=== PATIENT | female | born 1950 | race Caucasian/White ===

== ENCOUNTER 2017-04-27 08:54 | Emergency (ER) | payer MEDICARE ==
[~2017-04-27] VITALS: Ht 167.6 cm; Wt 72.5 kg
[2017-04-27 08:58] VITALS: BP 167/75; PULSE 81; RESP 14; TEMP 98.7; O2SAT 99
[2017-04-27 09:42] LABS: BILIRUBIN, URINE NEG (NEG); BLOOD, URINE NEG (NEG); GLUCOSE,URINE NEG (NEG); KETONE, URINE NEG (NEG); NITRITE,URINE NEG (NEG); PH, URINE 6.5 (5.0-8.5); SQUAMOUS EPITHELIAL CELL URINE 1 /hpf (0-5); URINE LEUKOCYTE ESTERASE NEG (NEG)
[2017-04-27 09:43] LABS: URINE COLOR STRAW (YELLW/STRAW)
--- NOTE | 2017-04-27 09:52 | PD ---
HPI Chief Complaint: Flank/Kidney Pain Time Seen by Provider: 09:32 Travel History International Travel<30 days: No Contact w/Intl Traveler<30days: No Traveled to known affect area: No History of Present Illness HPI Patient is a 66-year-old female presents emergency department for evaluation of left flank pain for the past day and a half. Patient states that she has a history of kidney infections and thinks that she is having one again. Denies any fevers nausea vomiting diarrhea constipation blood in the stool. States she is just having pain in her left flank. Denies any dysuria. States she has never had any kidney stones. She states the pain is moderate to severe, gradually worsening, context and associated signs and symptoms as above PFSH Past Medical History Medical History: Denies Significant Hx Hx Anticoagulant Therapy: No Cardiovascular Problems: No Chemotherapy: No Cerebrovascular Accident: No Diabetes: No Respiratory: No ?: Unknown Past Surgical History Appendectomy: Yes Section: Yes Hysterectomy: No Social History Alcohol Use: Yes (couple times a week ) Tobacco Use: Yes (2 1/2 packs a day ) Substance Use: No Allergies-Medications (Allergen,Severity, Reaction): Coded Allergies: codeine (Verified Allergy, Intermediate, Nausea/Vomiting, 04/27/17) Reported Meds & Prescriptions Reported Meds & Active Scripts Active No Active Prescriptions or Reported Medications Review of Systems Except as stated in HPI: all other systems reviewed are Neg Physical Exam Narrative GENERAL: Well-developed well-nourished, quite pleasant in no obvious distress peer SKIN: Focused skin assessment warm/dry. HEAD: Atraumatic. Normocephalic. EYES: Pupils equal and round. No scleral icterus. No injection or drainage. ENT: No nasal bleeding or discharge. Mucous membranes pink and moist. NECK: Trachea midline. No JVD. CARDIOVASCULAR: Regular rate and rhythm. No murmur appreciated. RESPIRATORY: No accessory muscle use. Clear to auscultation. Breath sounds equal bilaterally. GASTROINTESTINAL: Abdomen soft, non-tender, nondistended. Hepatic and splenic margins not palpable. No CVA tenderness, no rebound no percussive tenderness, Irene sign negative MUSCULOSKELETAL: No obvious deformities. No clubbing. No cyanosis. No edema. NEUROLOGICAL: Awake and alert. No obvious cranial nerve deficits. Motor grossly within normal limits. Normal speech. PSYCHIATRIC: Appropriate mood and affect; insight and judgment normal. Data Data Last Documented VS Vital Signs Date Time Temp Pulse Resp B/P (MAP) Pulse Ox O2 Delivery O2 Flow Rate FiO2 04/27/17 13:05 04/27/17 09:26 80 16 04/27/17 08:58 98.7 99 Room Air Orders Orders Urinalysis - C+S If Indicated (04/27/17 09:18) Complete Blood Count With Diff (04/27/17 09:51) Comprehensive Metabolic Panel (04/27/17 09:51) Lipase (04/27/17 09:51) Prothrombin Time / Inr (Pt) (04/27/17 09:51) Act Partial Throm Time (Ptt) (04/27/17 09:51) Iv Access Insert/Monitor (04/27/17 09:51) Ecg Monitoring (04/27/17 09:51) Oximetry (04/27/17 09:51) Sodium Chloride 0.9% Flush (Ns Flush) (04/27/17 10:00) Electrocardiogram (04/27/17 09:51) Ibuprofen (Motrin) (04/27/17 10:00) Ct Abd/Pel W Iv Contrast(Rout) (04/27/17 ) Iohexol 350 Inj (Omnipaque 350 Inj) (04/27/17 11:57) Ed Discharge Order (04/27/17 12:34) Labs Laboratory Tests Test 04/27/17 09:25 04/27/17 10:00 Urine Color STRAW Urine Turbidity CLEAR Urine pH 6.5 Urine Specific [place] 1.002 Urine Protein NEG mg/dL Urine Glucose (UA) NEG mg/dL Urine Ketones NEG mg/dL Urine Occult Blood NEG Urine Nitrite NEG Urine Bilirubin NEG Urine Urobilinogen LESS THAN 2.0 MG/DL Urine Leukocyte Esterase NEG Urine RBC LESS THAN 1 /hpf Urine WBC LESS THAN 1 /hpf Urine Squamous Epithelial Cells 1 /hpf Microscopic Urinalysis Comment CULT NOT INDICATED White Blood Count 6.8 TH/MM3 Red Blood Count 4.46 MIL/MM3 Hemoglobin 14.6 GM/DL Hematocrit 41.4 % Mean Corpuscular Volume 92.9 FL Mean Corpuscular Hemoglobin 32.8 PG Mean Corpuscular Hemoglobin Concent 35.3 % Red Cell Distribution Width 13.9 % Platelet Count 198 TH/MM3 Mean Platelet Volume 8.5 FL Neutrophils (%) (Auto) 57.5 % Lymphocytes (%) (Auto) 32.0 % Monocytes (%) (Auto) 8.5 % Eosinophils (%) (Auto) 1.4 % Basophils (%) (Auto) 0.6 % Neutrophils # (Auto) 3.9 TH/MM3 Lymphocytes # (Auto) 2.2 TH/MM3 Monocytes # (Auto) 0.6 TH/MM3 Eosinophils # (Auto) 0.1 TH/MM3 Basophils # (Auto) 0.0 TH/MM3 CBC Comment DIFF FINAL Differential Comment Prothrombin Time 10.0 SEC Prothromb Time International Ratio 1.0 RATIO Activated Partial Thromboplast Time 27.6 SEC Blood Urea Nitrogen 12 MG/DL Creatinine 0.58 MG/DL Random Glucose 86 MG/DL Total Protein 6.9 GM/DL Albumin 3.9 GM/DL Calcium Level 8.9 MG/DL Alkaline Phosphatase 70 U/L Aspartate Amino Transf (AST/SGOT) 14 U/L Alanine Aminotransferase (ALT/SGPT) 16 U/L Total Bilirubin 0.3 MG/DL Sodium Level 142 MEQ/L Potassium Level 3.8 MEQ/L Chloride Level 109 MEQ/L Carbon Dioxide Level 28.1 MEQ/L Anion Gap 5 MEQ/L Estimat Glomerular Filtration Rate 104 ML/MIN Lipase 131 U/L MDM Medical Decision Making Medical Screen Exam Complete: Yes Emergency Medical Condition: Yes Differential Diagnosis Kidney stone, UTI, pelvic pain, appendicitis unlikely, acute kidney disease Narrative Course Patient room to the emergency department, she does not want anything stronger for pain medicine and ibuprofen, she appears well in obvious distress. Labs are reassuring, UA negative. CAT scan of her abdomen ordered given her age: Last 24 hours Impressions Abdomen/Pelvis CT 04/27/17 0000 Signed Impressions: Service Date/Time: Thursday, April 27, 2017 11:43 - CONCLUSION: 1. Scattered diverticulosis of the descending and sigmoid colon without inflammatory changes. 2. Bulky enlarged fibroid uterus. On a nonemergent outpatient basis, recommend a dedicated pelvic and transvaginal ultrasound. 3. Pelvic congestion syndrome. 4. 9 mm benign appearing left hepatic cyst. Rosas Miguel MD Discussed results with the patient and recommended outpatient follow-up as above. Discussed return to ED criteria. Her pain is relatively well controlled. She is stable for discharge Diagnosis Primary Impression: Abdominal pain Qualified Codes: R10.84 - Generalized abdominal pain Scripts No Active Prescriptions or Reported Meds Disposition: DISCHARGE HOME Condition: Stable Caleb Paez MD Apr 27, 2017 09:52
[2017-04-27] MEDS ORDERED: IBUPROFEN 600 MG TAB PO ONE (10:00)
[2017-04-27] MEDS ORDERED: SODIUM CHLORIDE 0.9% FLUSH 10 ML FLUSH IV FLUSH PRN (10:00)
[2017-04-27 10:58] LABS: AUTOMATED NEUTROPHIL # 3.9 TH/MM3 (1.8-7.7); BASOPHIL % 0.6 % (0.0-2.0); EOSINOPHIL # 0.1 TH/MM3 (0-0.4); EOSINOPHIL % 1.4 % (0.0-4.0); HEMATOCRIT 41.4 % (35.0-46.0); HEMOGLOBIN 14.6 GM/DL (11.6-15.3); LYMPHOCYTE # 2.2 TH/MM3 (1.0-4.8); MEAN CELL VOLUME 92.9 FL (80.0-100.0); MEAN CORPUSCULAR HEMOGLOBIN 32.8 PG (27.0-34.0); MEAN CORPUSCULAR HGB CONC 35.3 % (32.0-36.0); MEAN PLATELET VOLUME 8.5 FL (7.0-11.0); MONO % 8.5 % (0.0-8.0); MONOCYTE # 0.6 TH/MM3 (0-0.9); NEUT % 57.5 % (16.0-70.0); PLATELET COUNT 198 TH/MM3 (150-450); RED BLOOD COUNT 4.46 MIL/MM3 (4.00-5.30); RED CELL DISTRIBUTION WIDTH 13.9 % (11.6-17.2); WHITE BLOOD COUNT 6.8 TH/MM3 (4.0-11.0)
[2017-04-27 11:13] LABS: ALBUMIN 3.9 GM/DL (3.4-5.0); ALT (GPT) 16 U/L (10-53); AST (GOT) 14 U/L (15-37); BICARBONATE 28.1 MEQ/L (21.0-32.0); BLOOD UREA NITROGEN 12 MG/DL (7-18); CALCIUM 8.9 MG/DL (8.5-10.1); CHLORIDE 109 MEQ/L (98-107); CREATININE 0.58 MG/DL (0.50-1.00); GLOMERULAR FILTRATION RATE 104 ML/MIN (>89); GLUCOSE,RANDOM 86 MG/DL (74-106); SODIUM (NA) 142 MEQ/L (136-145)
[2017-04-27 11:16] LABS: ALKALINE PHOSPHATASE 70 U/L (45-117); TOTAL BILIRUBIN ADULT 0.3 MG/DL (0.2-1.0); TOTAL PROTEIN 6.9 GM/DL (6.4-8.2)
[2017-04-27] MEDS ORDERED: IOHEXOL 350 MG/ML 10 ML VIAL (for RAD DIAG) IVCONTRAST ONE (11:57)
--- NOTE | 2017-04-27 12:07 | RADRPT ---
EXAM DATE/TIME: 04/27/2017 11:43 [facility] COMPARISON: No previous studies available for comparison. INDICATIONS : Left flank pain. IV CONTRAST: 82 cc Omnipaque 350 (iohexol) IV ORAL CONTRAST: No oral contrast ingested. RADIATION DOSE: 10.80 CTDIvol (mGy) MEDICAL HISTORY : None SURGICAL HISTORY : Appendectomy. ENCOUNTER: Initial ACUITY: 1 day PAIN SCALE: 4/10 LOCATION: Left flank TECHNIQUE: Volumetric scanning of the abdomen and pelvis was performed. Using automated exposure control and ad justment of the mA and/or kV according to patient size, radiation dose was kept as low as reasonably achievable to obtain optimal diagnostic quality images. DICOM format image data is available electro nically for review and comparison. FINDINGS: LOWER LUNGS: The visualized lower lungs are clear. LIVER: Homogeneous density without lesion. There is a 9 mm hepatic cyst in the left lobe liver. There is no dilation of the biliary tree. No calcified gallstones. SPLEEN: Normal size without lesion. PANCREAS: Within normal limits. KIDNEYS: Normal in size and shape. There is no mass, stone or hydronephrosis. ADRENAL GLANDS: Within normal limits. VASCULAR: There is no aortic aneurysm. BOWEL/MESENTERY: The stomach, small bowel, and colon demonstrate no acute abnormality. There is no free intraperitone al air or fluid. Scattered diverticulosis of the descending and sigmoid colon without inflammatory ch anges. ABDOMINAL WALL: Within normal limits. RETROPERITONEUM: There is no lymphadenopathy. BLADDER: No wall thickening or mass. The bladder is decompressed. REPRODUCTIVE: The uterus is bulky and prominent with calcifications characteristic of a bulky fibroid uterus. There is some prominence vascular structures in the adnexal regions, left greater than right. INGUINAL: There is no lymphadenopathy or hernia. MUSCULOSKELETAL: Within normal limits for patient age. Primary bony degenerative changes. CONCLUSION: 1. Scattered diverticulosis of the descending and sigmoid colon without inflammatory changes. 2. Bulky enlarged fibroid uterus. On a nonemergent outpatient basis, recommend a dedicated pelvic and transvaginal ultrasound. 3. Pelvic congestion syndrome. 4. 9 mm benign appearing left hepatic cyst. Rosas Miguel MD on April 27, 2017 at 12:00 Board Certified Radiologist. This report was verified electronically.
--- NOTE | 2017-04-27 17:11 | EKG ---
Date Performed: 04/27/2017 Time Performed: 11:10:19 PTAGE: 66 years EKG: Sinus rhythm NONSPECIFIC T WAVE CHANGES BORDERLINE ECG NO PREVIOUS TRACING DOCTOR: Desmond Willis Interpretating Date/Time 04/27/2017 17:10:00
== END 2017-04-27 13:04 | disposition home or self-care (01) ==
LOC: NEPE 08:54
DX: R10.84 Generalized abdominal pain (principal); K57.30 Diverticulosis of large intestine without perforation or abscess without bleeding; D25.9 Leiomyoma of uterus, unspecified; F17.200 Nicotine dependence, unspecified, uncomplicated; R94.31 Abnormal electrocardiogram [ECG] [EKG]
CPT/HCPCS: 74177; 80053; 81001; 83690; 85025; 85610; 85730; 93005; 99285; Q9967